=== PATIENT | female | born 1950 | race Caucasian/White ===

== ENCOUNTER 2016-04-16 19:13 | Emergency (ER) | payer MEDICARE, OTHER | END 2016-04-16 19:48 | disposition left against medical advice (07) | LOC: ER 19:19 | DX: Z53.21 Procedure and treatment not carried out due to patient leaving prior to being seen by health care provider (principal) ==

== ENCOUNTER 2016-04-16 21:07 | Emergency (ER) | payer MEDICARE, OTHER ==
[~2016-04-16] VITALS: Ht 165.1 cm; Wt 73.9 kg
[2016-04-16 21:20] VITALS: BP 119/69
== END 2016-04-16 22:47 | disposition left against medical advice (07) ==
LOC: ER 21:07
DX: Z53.21 Procedure and treatment not carried out due to patient leaving prior to being seen by health care provider (principal)
CPT/HCPCS: A4606; Z7610

== ENCOUNTER 2016-08-07 10:44 | Outpatient (CLI) | payer MEDICARE, OTHER ==
[2016-08-07 13:53] LABS: BASOPHILS % (AUTO) 0.3 % (0.0-2.0); EOSINOPHILS # (AUTO) 0.3 /CMM (0.0-0.7); EOSINOPHILS % (AUTO) 2.6 % (0.0-6.0); HEMATOCRIT 44 % (33-45); HEMOGLOBIN 14.7 g/dL (11.5-14.8); LYMPHOCYTES # (AUTO) 3.6 /CMM (0.8-4.8); LYMPHOCYTES % (AUTO) 31.3 % (20.0-44.0); MEAN CORPUSCULAR HEMOGLOBIN 31 PG (26.0-33.0); MEAN CORPUSCULAR HGB CONC 34 g/dl (31.0-36.0); MEAN CORPUSCULAR VOLUME 93 fL (82-100); MONOCYTES # (AUTO) 0.8 /CMM (0.1-1.30); MONOCYTES % (AUTO) 7.2 % (2.0-12.0); NEUTROPHILS # (AUTO) 6.8 /CMM (1.8-8.9); NEUTROPHILS % (AUTO) 58.6 % (43.0-81.0); PLATELET COUNT (AUTO) 163 /CMM (150-450); RDW COEFFICIENT OF VARIATION 13.8 (11.5-15.0); RED BLOOD CELL COUNT(AUTO) 4.72 MIL/uL (4.0-5.2); WHITE BLOOD COUNT (AUTO) 11.6 K/uL (4.3-11.0)
[2016-08-07 14:31] LABS: ALBUMIN 3.7 g/dL (3.4-5.0); BILIRUBIN,TOTAL 0.4 mg/dL (0.2-1.0); CALCIUM, SERUM 9.8 mg/dL (8.5-10.1); CREATININE 0.7 mg/dL (0.6-1.3); POTASSIUM 4.6 mmol/L (3.5-5.1); TOTAL PROTEIN, SERUM 7.4 g/dL (6.4-8.2)
[2016-08-08 11:11] LABS: AFP, TUMOR MARKER 3.3 ng/mL (0.0-8.3)
== END 2016-08-07 23:59 | disposition home or self-care (01) ==
LOC: US 10:44
PROVIDERS: ATTEND Internal Medicine Hematology & Oncology
DX: K74.60 Unspecified cirrhosis of liver (principal); N64.4 Mastodynia; N64.89 Other specified disorders of breast; L90.5 Scar conditions and fibrosis of skin; R63.4 Abnormal weight loss; R16.0 Hepatomegaly, not elsewhere classified; K76.9 Liver disease, unspecified
CPT/HCPCS: 36415; 76641-TC; 76700-TC; 80053-TC; 82105; 85025-TC; 86704; 86709; 86803

== ENCOUNTER 2018-12-30 11:38 | Inpatient (IN) | payer MEDICARE, OTHER ==
[~2018-12-30] VITALS: Ht 160 cm; Wt 70.8 kg
[2018-12-30 00:01] VITALS: BP 125/87
[2018-12-30 12:17] LABS: BASOPHILS # (AUTO) 0.1 /CMM (0.0-0.2); BASOPHILS % (AUTO) 0.8 % (0.0-2.0); EOSINOPHILS % (AUTO) 2.3 % (0.0-6.0); HEMATOCRIT 45 % (33-45); HEMOGLOBIN 14.6 g/dL (11.5-14.8); LYMPHOCYTES # (AUTO) 1.7 /CMM (0.8-4.8); LYMPHOCYTES % (AUTO) 20.9 % (20.0-44.0); MEAN CORPUSCULAR HGB CONC 33 g/dl (31.0-36.0); MEAN CORPUSCULAR VOLUME 93 fL (82-100); MONOCYTES # (AUTO) 0.7 /CMM (0.1-1.30); MONOCYTES % (AUTO) 8.9 % (2.0-12.0); NEUTROPHILS # (AUTO) 5.5 /CMM (1.8-8.9); NEUTROPHILS % (AUTO) 67.1 % (43.0-81.0); PLATELET COUNT (AUTO) 115 /CMM (150-450); RED BLOOD CELL COUNT(AUTO) 4.79 MIL/uL (4.0-5.2); WHITE BLOOD COUNT (AUTO) 8.2 K/uL (4.3-11.0)
[2018-12-30 12:24] LABS: CARBON DIOXIDE 30 mmol/L (21-32); CHLORIDE 105 mmol/L (98-107); CREATININE 0.7 mg/dL (0.6-1.3); GLUCOSE 85 mg/dL (74-106); POTASSIUM 4.4 mmol/L (3.5-5.1); SODIUM SERUM 139 mmol/L (136-145); UREA NITROGEN, BLOOD 16 mg/dL (7-18)
[2018-12-30 12:36] LABS: ALANINE AMINOTRANSFERASE 19 U/L (12-78); ALBUMIN 3.7 g/dL (3.4-5.0); ALKALINE PHOSPHATASE 66 U/L (46-116); ASPARTATE AMINOTRANSFERASE 19 U/L (15-37); B-TYPE NATRIURETIC PEPTIDE 2268 PG/ML (0-125); BILIRUBIN,DIRECT 0.1 mg/dL (0.0-0.2); BILIRUBIN,TOTAL 0.4 mg/dL (0.2-1.0); TOTAL PROTEIN, SERUM 7.1 g/dL (6.4-8.2)
--- NOTE | 2018-12-30 13:21 | NUR ---
CALLED [facility]. DRILL SERGEANT WAS PAGED
[2018-12-30] MEDS ORDERED: CYCL5TAB PO (13:27)
[2018-12-30] MEDS ORDERED: OMEP40CA37 PO (13:27)
[2018-12-30] MEDS ORDERED: MEMA10TA PO (13:27)
[2018-12-30] MEDS ORDERED: DULO20CA PO (13:27)
[2018-12-30] MEDS ORDERED: QUET300T2 PO (13:27)
[2018-12-30] MEDS ORDERED: OLAN10TA3 PO (13:27)
[2018-12-30] MEDS ORDERED: ACET-907 PO (13:27)
[2018-12-30] MEDS ORDERED: PRAV40TA3 PO (13:27)
[2018-12-30] MEDS ORDERED: MELO-105 PO (13:27)
[2018-12-30] MEDS ORDERED: LOSA50TA39 PO (13:27)
[2018-12-30] MEDS ORDERED: ALBU18HF2 IH (13:27)
[2018-12-30] MEDS ORDERED: BENA20TA9 PO (13:27)
[2018-12-30] MEDS ORDERED: ATOR40TA PO (13:27)
[2018-12-30] MEDS ORDERED: ESCI10TA PO (13:27)
[2018-12-30] MEDS ORDERED: OXCA300T15 PO (13:27)
[2018-12-30] MEDS ORDERED: LORA10TA7 PO (13:27)
[2018-12-30] MEDS ORDERED: FUROSEMIDE 20 MG/2 ML VIAL IV ONE (13:30)
[2018-12-30] MEDS ORDERED: FUROSEMIDE 20 MG/2 ML VIAL ONE (13:41)
[2018-12-30] MEDS ORDERED: ONDANSETRON HCL/PF 4 MG/2 ML VIAL IVP PRN (14:00)
[2018-12-30] MEDS ORDERED: MAGNESIUM HYDROXIDE 30 ML UDC PO PRN (14:00)
[2018-12-30] MEDS ORDERED: ACETAMINOPHEN 325 MG TABLET PO PRN (14:00)
[2018-12-30] MEDS ORDERED: MAG HYDROX/AL HYDROX/SIMETH 30 ML UDC PO PRN (14:00)
[2018-12-30] MEDS ORDERED: ZOLPIDEM TARTRATE 5 MG TABLET PO PRN (14:00)
[2018-12-30] MEDS ORDERED: ALBUTEROL FS 2.5 MG/3 ML VIAL.NEB NEB PRN (14:00)
[2018-12-30] MEDS ORDERED: MORPHINE SULFATE INJ 2 MG/ML DISP.SYRIN IV PRN (14:00)
[2018-12-30] MEDS: ENOXAPARIN SODIUM 40 MG/0.4 ML DISP.SYRIN SQ SCH ×2 (14:00→14:58)
--- NOTE | 2018-12-30 14:06 | NUR ---
REPORT GIVEN TO ELIN FUENTES FOR MATTHEW PT WILL BE TRANSPORTED TO 3RD FLOOR VIA [facility]
[2018-12-30 14:30] VITALS: BP 157/89
[2018-12-30] MEDS: OXCARBAZEPINE 150 MG TABLET PO SCH (14:39)
[2018-12-30] MEDS: QUETIAPINE FUMARATE 100 MG TABLET PO SCH (14:39)
[2018-12-30] MEDS ORDERED: CLONIDINE HCL 0.1 MG TABLET PO ONE (14:50)
[2018-12-30] MEDS ORDERED: CLONIDINE HCL 0.1 MG TABLET PO PRN (15:00)
--- NOTE | 2018-12-30 15:00 | NUR ---
BUILDING MAINTENANCE TECHNICIANFARM SPECIALIST NOTES RECEIVED PT FROM ER DEPT VIA STRETCHER. PT ABLE TO AMBULATE WITH STEADY GAIT FROM STRETCHER GOING INSIDE THE ROOM AND GOING TO THE BATHROOM AND TO THE BED. ALL BELONGINGS REVIEWED WITH PT AND CHECKED IN THE INVENTORY LIST. PT A/O X3-4. PT TOLERATING RA, WITH COMPLAINS OF HAVING SOB, OXYGEN SATURATION CHECKED AND RESULTED 100%, PT AWARE. PT HOOKED IN TELEMONITORING, SR 95. PT DENIES ANY PAIN OR ANY DISCOMFORT AT THE TIME OF ADMISSION. PT ALSO DENIES QUESTIONS AND CONCERNS AT THIS MOMENT AND WANTS TO HAVE REST FOR NOW. PT ABLE TO PROVIDE MOST OF THE ADMISSION INFORMATION/HISTORY. [facility] [facility] [place]. SKIN ASSESSED, WITH NO SKIN BREAKDOWN. PIV TO RAC G20, FLUSHED WITH NS, INTACT AND OPERATIONAL. PT KEPT COMFORTABLE IN BED. BED IN LOWEST LOCKED POSITION WITH SR X3. CALL LIGHT KEPT WITHIN REACH. WILL CONTINUE PLAN OF CARE.
--- NOTE | 2018-12-30 15:15 | NUR ---
MUSIC THEORY PROFESSOR NOTES CLARIFICATION TO THE SKIN ASSESSMENT THAT IS INTACT. "INTACT" PER PT BUT HAS A HEALED WOUND ON THE RIGHT HAND WITH A GLOVE ON. PT REFUSED TO HAVE THE GLOVE TAKEN OFF AND PICTURE TO BE TAKEN. RN EXPLAINED RISKS AND BENEFITS, INSISTED TO REFUSE.
[2018-12-30 16:00] VITALS: BP 90/56
--- NOTE | 2018-12-30 16:10 | NUR ---
TEACHER EMOTIONALLY IMPAIRED NOTES PT REFUSED TO HAVE VENOUS DOPPLER TO BILATERAL LEGS AT THIS TIME. PT PEREFERS IT TO BE DONE AT 5PM. RISKS AND BENEFITS EXPLAINED. PT INSISTED TO REFUSE.
--- NOTE | 2018-12-30 16:21 | NUR ---
PT REFUSED DUPLEX VENOUS LOWER EXT BI EXAM. ADVISED ATTENDING RN. TRY LATER.
[2018-12-30] MEDS: LOSARTAN POTASSIUM 50 MG TABLET PO SCH (17:00)
[2018-12-30] MEDS: MEMANTINE HCL 5 MG TABLET PO SCH (17:28)
[2018-12-30] MEDS: HYDROCODONE/APAP 5/325MG 1 EACH TABLET PO PRN (17:32)
--- NOTE | 2018-12-30 18:45 | NUR ---
BANK REPRESENTATIVE CLOSING NOTES PT A/O X 3-4. AMBULATORY. PT TOLERATING RA, WITH NO ACUTE RESPIRATORY DISTRESS NOTED. PT ON TELEMONITORING, SR 96. PT DENIES ANY PAIN OR ANY DISCOMFORT AT THIS MOMENT. PIV TO RAC G20, FLUSHED WITH NS, INTACT AND OPERATIONAL. ALL NEEDS AND CARE ATTENDED. PT KEPT COMFORTABLE IN BED. BED IN LOWEST LOCKED POSITION WITH SR X3. CALL LIGHT KEPT WITHIN REACH. WILL ENDORSE TO INCOMING NIGHT NURSE FOR MATTHEW.
--- NOTE | 2018-12-30 19:10 | NUR ---
FISHER LAMPARA NET NOTE RECEIVED PT IN STABLE CONDITION A/O X4, CURRENTLY SLEEPING, EASILY RESPONDS TO NAME. NO SIGNS OF SOB OR DISTRESS, NO C/O PAIN. IV IN R AC #[address] S/L. ALL CURRENT NEEDS ATTENDED TO. BED LOW, LOCKED, UPPER RAILS UP AND CALL LIGHT WITHIN REACH. WILL CONT. TO MONITOR.
[2018-12-30 20:00] VITALS: BP 107/63
[2018-12-31] VITALS (19 sets, daily range): BP systolic 83–144; BP diastolic 45–95
[2018-12-31] MEDS: HYDROCODONE/APAP 5/325MG 1 EACH TABLET PO PRN ×2 (02:15→08:44)
--- NOTE | 2018-12-31 06:32 | NUR ---
HUMID SYSTEM OPERATOR NOTE PT IN STABLE CONDITION A/O X4, CURRENTLY SLEEPING, EASILY RESPONDS TO NAME. NO SIGNS OF SOB OR DISTRESS, NO C/O PAIN. IV IN R AC #[address] S/L. TELE MONITOR: SR 70. ALL CURRENT NEEDS ATTENDED TO. BED LOW, LOCKED, UPPER RAILS UP AND CALL LIGHT WITHIN REACH. WILL CONT. TO MONITOR AND ENDORSE TO NEXT SHIFT FOR MATTHEW.
[2018-12-31 06:41] LABS: BASOPHILS % (AUTO) 0.5 % (0.0-2.0); EOSINOPHILS % (AUTO) 2.9 % (0.0-6.0); HEMATOCRIT 44 % (33-45); HEMOGLOBIN 14.6 g/dL (11.5-14.8); LYMPHOCYTES # (AUTO) 2.6 /CMM (0.8-4.8); LYMPHOCYTES % (AUTO) 29.3 % (20.0-44.0); MEAN CORPUSCULAR HGB CONC 34 g/dl (31.0-36.0); MEAN CORPUSCULAR VOLUME 92 fL (82-100); MONOCYTES # (AUTO) 0.9 /CMM (0.1-1.30); MONOCYTES % (AUTO) 9.9 % (2.0-12.0); NEUTROPHILS # (AUTO) 5.1 /CMM (1.8-8.9); NEUTROPHILS % (AUTO) 57.4 % (43.0-81.0); PLATELET COUNT (AUTO) 106 /CMM (150-450); RED BLOOD CELL COUNT(AUTO) 4.73 MIL/uL (4.0-5.2); WHITE BLOOD COUNT (AUTO) 8.9 K/uL (4.3-11.0)
[2018-12-31 06:56] LABS: ALBUMIN 3.5 g/dL (3.4-5.0); BILIRUBIN,TOTAL 0.5 mg/dL (0.2-1.0); CALCIUM, SERUM 9.7 mg/dL (8.5-10.1); CREATININE 0.8 mg/dL (0.6-1.3); MAGNESIUM 1.9 mg/dL (1.8-2.4); PHOSPHORUS 3.6 mg/dL (2.5-4.9); POTASSIUM 4.6 mmol/L (3.5-5.1)
[2018-12-31 07:11] LABS: THYROID STIMULATING HORMONE 0.992 uIU/mL (0.358-3.74)
[2018-12-31] MEDS: PANTOPRAZOLE 40 MG TABLET.DR PO SCH (07:30)
--- NOTE | 2018-12-31 07:45 | NUR ---
LOFT WORKER HEAD OPENING NOTES Patient received on room air, no sob noted, a/o x4. On tele SR 80's, R AC 20 S/L. Patient denies pain at this time and is sleeping comfortably on her bed. Bed at the lowest setting, call light within reach, side rails up x2.
[2018-12-31] MEDS: MEMANTINE HCL 5 MG TABLET PO SCH ×2 (08:42→16:25)
[2018-12-31] MEDS: DULOXETINE HCL 20 MG CAPSULE.DR PO SCH (08:43)
[2018-12-31] MEDS: ATORVASTATIN 40 MG TABLET PO SCH (08:43)
[2018-12-31] MEDS: OXCARBAZEPINE 150 MG TABLET PO SCH (08:43)
[2018-12-31] MEDS: QUETIAPINE FUMARATE 100 MG TABLET PO SCH (08:43)
[2018-12-31] MEDS: ESCITALOPRAM OXALATE (10 MG) 10 MG TABLET PO SCH (08:44)
[2018-12-31] MEDS: FUROSEMIDE 20 MG TABLET PO SCH (08:44)
[2018-12-31] MEDS: OLANZAPINE 10 MG TABLET PO SCH (08:44)
[2018-12-31] MEDS: LOSARTAN POTASSIUM 50 MG TABLET PO SCH ×2 (08:44→16:17)
[2018-12-31] MEDS: BENAZEPRIL HCL 20 MG TABLET PO SCH (08:44)
--- NOTE | 2018-12-31 08:51 | NUR ---
RN NOTES Patient asked for NORCO and then refused after I opened the medication to be administered. Medication to be wasted.
[2018-12-31] MEDS ORDERED: ALBUTEROL FS 2.5 MG/3 ML VIAL.NEB NEB PRN (09:00)
[2018-12-31] MEDS: ALBUTEROL FS 2.5 MG/3 ML VIAL.NEB NEB SCH ×3 (10:00→19:38)
[2018-12-31] MEDS: IPRATROPIUM NEB FS 0.5 MG/2.5 ML AMPUL.NEB NEB SCH ×3 (10:00→19:38)
[2018-12-31] MEDS ORDERED: IOHEXOL-350 100 ML VIAL IV ONE (11:38)
[2018-12-31] MEDS ORDERED: IV NS 0.9% 250 ML IV ONE (11:38)
[2018-12-31] MEDS ORDERED: CT SWABBABLE VALVE TRANS SET 1 EA INFUS.SET MC ONE (11:39)
--- NOTE | 2018-12-31 12:07 | NUR ---
RT NOTE ABG ORDERED,BUT PT REFUSED EXPLAINED RISK AND BENEFITS, BUT PT STILL REFUSED, RN AT BEDSIDE AND MADE AWARE
[2018-12-31] MEDS ORDERED: IV NS 0.9% 1,000 ML IV PRN (13:00)
[2018-12-31] MEDS ORDERED: IV NS 0.9% 1,000 ML BAG IV PRN (13:00)
[2018-12-31] MEDS ORDERED: IV D5/ 0.9% NACL 1,000 ML IV ONE (13:00)
--- NOTE | 2018-12-31 13:11 | NUR ---
RT TRANSFER TO ICU NOTES Patient transfered to ICU at this time. Report given bedside. Lovenox order placed, along with IV bolus and D5 NS @ 125 ml per hour.
[2018-12-31] MEDS: ENOXAPARIN SODIUM 80 MG/0.8 ML DISP.SYRIN SQ SCH ×2 (13:22→21:11)
[2018-12-31] MEDS ORDERED: NOREPINEPHRINE 16 MG in IV D5W 500 ML IV PRN (14:00)
--- NOTE | 2018-12-31 14:02 | NUR ---
RN NOTE 1310: Received patient transfer form 3W for PE seen from CTA chest. Per report from previous nurse, she had episode of SBP 80's, 500 NS bolus ongoing. Still 80;s at this time. Obtained order to may have PICC line insertion and Levophed standby. Patient agreed and signed consent for PICC insertion. 1330: Started patient on Lovenox 70mg, patient is aware for the plan of care. On 2LPM of O2 via NC, 99% sat. No respiratory distress noted at this time. 1400: EDUARDO PICC insertion done, patient tolerated well. VSS. Tomas PULP GRINDER updated. Done with 500NS bolus. SBP 100's. Will continue D5NS @ 125 x1. Patient resting well at this time.
--- NOTE | 2018-12-31 18:32 | NUR ---
RN NOTE Patient resting in bed well. VSS, on 2 LPM of O2 via NC. No c/o respiratory distress noted at this time. No c/o discomfort.
[2018-12-31] MEDS ORDERED: ALBUT2 NEB (19:41)
[2018-12-31] MEDS ORDERED: FURO20TA4 PO (19:41)
[2018-12-31] MEDS ORDERED: ENOX80DI SQ (19:41)
[2018-12-31] MEDS ORDERED: CLON0.1T14 PO (19:41)
[2018-12-31] MEDS ORDERED: IPRA0.2S9 NEB (19:41)
--- NOTE | 2018-12-31 20:32 | NUR ---
SOLID WASTE MANAGEMENT ENGINEER INITIAL NOTE RECEIVED PT IN BED, AOX3, ON NC@2L, WELL TOLERATED SR ON THE MONITOR, DENIES ANY DISCOMFORT POSITIVE FOR MASSIVE PE ON CTA EDUARDO PICC, FOR TRANSFER TO [facility], AWAITING FOR FINANCIAL CLEARANCE, PAPERWORK READY, PT AWARE, CLOSE MONITORING IN PLACE.
[2019-01-01] VITALS (26 sets, daily range): BP systolic 91–175; BP diastolic 36–107
[2019-01-01] MEDS: ALBUTEROL FS 2.5 MG/3 ML VIAL.NEB NEB SCH ×4 (01:34→19:11)
[2019-01-01] MEDS: IPRATROPIUM NEB FS 0.5 MG/2.5 ML AMPUL.NEB NEB SCH ×4 (01:34→19:11)
[2019-01-01] MEDS: HYDROCODONE/APAP 5/325MG 1 EACH TABLET PO PRN ×2 (01:34→17:57)
[2019-01-01 04:07] LABS: BASOPHILS % (AUTO) 0.5 % (0.0-2.0); EOSINOPHILS % (AUTO) 2.6 % (0.0-6.0); HEMATOCRIT 41 % (33-45); HEMOGLOBIN 13.5 g/dL (11.5-14.8); LYMPHOCYTES # (AUTO) 2.2 /CMM (0.8-4.8); LYMPHOCYTES % (AUTO) 29.6 % (20.0-44.0); MEAN CORPUSCULAR HGB CONC 33 g/dl (31.0-36.0); MEAN CORPUSCULAR VOLUME 93 fL (82-100); MONOCYTES # (AUTO) 0.8 /CMM (0.1-1.30); MONOCYTES % (AUTO) 10.9 % (2.0-12.0); NEUTROPHILS # (AUTO) 4.2 /CMM (1.8-8.9); NEUTROPHILS % (AUTO) 56.4 % (43.0-81.0); PLATELET COUNT (AUTO) 106 /CMM (150-450); RED BLOOD CELL COUNT(AUTO) 4.38 MIL/uL (4.0-5.2); WHITE BLOOD COUNT (AUTO) 7.4 K/uL (4.3-11.0)
[2019-01-01 04:17] LABS: CALCIUM, SERUM 9.2 mg/dL (8.5-10.1); CREATININE 0.8 mg/dL (0.6-1.3); POTASSIUM 3.8 mmol/L (3.5-5.1)
--- NOTE | 2019-01-01 06:24 | NUR ---
RADIAL SAW OPERATOR CLOSING NOTE PT IN BED, AOX3, ON NC@2L, WELL TOLERATED SR ON THE MONITOR, DENIES ANY DISCOMFORT POSITIVE FOR MASSIVE PE ON CTA EDUARDO PICC, FOR TRANSFER TO [facility], AWAITING FOR FINANCIAL CLEARANCE, AND BED, PAPERWORK READY, PT AWARE, CLOSE MONITORING IN PLACE, WILL ENDORSE TO AM RN TO TO F/U WITH CM.
[2019-01-01] MEDS: QUETIAPINE FUMARATE 100 MG TABLET PO SCH (08:30)
[2019-01-01] MEDS: ENOXAPARIN SODIUM 80 MG/0.8 ML DISP.SYRIN SQ SCH ×2 (08:30→20:30)
[2019-01-01] MEDS: PANTOPRAZOLE 40 MG TABLET.DR PO SCH (08:31)
[2019-01-01] MEDS: DULOXETINE HCL 20 MG CAPSULE.DR PO SCH (08:31)
[2019-01-01] MEDS: FUROSEMIDE 20 MG TABLET PO SCH (08:31)
[2019-01-01] MEDS: LOSARTAN POTASSIUM 50 MG TABLET PO SCH ×2 (08:31→16:23)
[2019-01-01] MEDS: ATORVASTATIN 40 MG TABLET PO SCH (08:31)
[2019-01-01] MEDS: MEMANTINE HCL 5 MG TABLET PO SCH ×2 (08:31→16:23)
[2019-01-01] MEDS: ESCITALOPRAM OXALATE (10 MG) 10 MG TABLET PO SCH (08:31)
[2019-01-01] MEDS: BENAZEPRIL HCL 20 MG TABLET PO SCH (08:32)
[2019-01-01] MEDS: OXCARBAZEPINE 150 MG TABLET PO SCH (08:35)
[2019-01-01] MEDS: OLANZAPINE 10 MG TABLET PO SCH (08:35)
--- NOTE | 2019-01-01 09:25 | NUR ---
RN NOTE 0715: Received patient awake, A/Ox4. Tolerated room air at this time. With EDUARDO PICC intact. VSS. No SOB or any respiratory distress noted at this time. Patient aware for the plan of care, awaiting for bed availability from [facility]. 0910: S/E by Dr. Wells, still awaiting for placement/bed availability.
--- NOTE | 2019-01-01 17:13 | NUR ---
RN NOTE No any significant changes noted at this time. VSS. Still awaiting for placement, per CM [facility] will us when there is available bed.
--- NOTE | 2019-01-01 19:32 | NUR ---
ACID CHANGER. INITIAL ASSESSMENT. RECEIVED THE PT REST ON THE BED. AWAKE, ALERT, FOLLOW COMMANDS. WILDLIFE CONTROL OPERATOR SHOWING NSR. OXYGEN 2L VIA NASAL CANNULA. SAT 96%. NO ACUTE DISTRESS NOTED. IV RT UPPER ARM MID LINE. SALINE LOCK. WILL CONTINUE TO MONITOR VITALS.
[2019-01-02] VITALS (18 sets, daily range): BP systolic 86–160; BP diastolic 45–85
[2019-01-02] MEDS: IPRATROPIUM NEB FS 0.5 MG/2.5 ML AMPUL.NEB NEB SCH ×3 (00:49→13:30)
[2019-01-02] MEDS: ALBUTEROL FS 2.5 MG/3 ML VIAL.NEB NEB SCH ×3 (00:49→13:30)
--- NOTE | 2019-01-02 03:06 | NUR ---
[employer] school agriculture teacher. am care. oral care, bed bath given. linen changed. remaining same oxygen tolerated well. vitals stable, afebrile. sat 98%. no acute distress noted. during shift pt denies sob or chest pain. will continue to monitor vitals.
[2019-01-02] MEDS: HYDROCODONE/APAP 5/325MG 1 EACH TABLET PO PRN ×2 (05:18→11:14)
--- NOTE | 2019-01-02 07:55 | NUR ---
RN NOTE 0715: Received patient resting. A/Ox4. No respiratory distress noted at this time. Tolerated room air. SR on the monitor. No active bleeding noted. EDUARDO PICC intact. 0755: No any significant changes noted. Will continue to monitor. Awaiting for placement([facility] call back).
[2019-01-02] MEDS: ATORVASTATIN 40 MG TABLET PO SCH (08:09)
[2019-01-02] MEDS: PANTOPRAZOLE 40 MG TABLET.DR PO SCH (08:09)
[2019-01-02] MEDS: DULOXETINE HCL 20 MG CAPSULE.DR PO SCH (08:09)
[2019-01-02] MEDS: ESCITALOPRAM OXALATE (10 MG) 10 MG TABLET PO SCH (08:09)
[2019-01-02] MEDS: QUETIAPINE FUMARATE 100 MG TABLET PO SCH (08:09)
[2019-01-02] MEDS: MEMANTINE HCL 5 MG TABLET PO SCH ×2 (08:09→16:44)
[2019-01-02] MEDS: BENAZEPRIL HCL 20 MG TABLET PO SCH (08:09)
[2019-01-02] MEDS: FUROSEMIDE 20 MG TABLET PO SCH (08:09)
[2019-01-02] MEDS: LOSARTAN POTASSIUM 50 MG TABLET PO SCH ×2 (08:09→16:40)
[2019-01-02] MEDS: ENOXAPARIN SODIUM 80 MG/0.8 ML DISP.SYRIN SQ SCH (08:10)
[2019-01-02] MEDS: OLANZAPINE 10 MG TABLET PO SCH (08:11)
[2019-01-02] MEDS: OXCARBAZEPINE 150 MG TABLET PO SCH (09:09)
--- NOTE | 2019-01-02 16:07 | NUR ---
RN CHANCE Arvizu from [facility] called [phone]), report given. Going to room 7W-9008. Per Keshia YING, molded goods spot picker time at 1730. Made patient aware.
--- NOTE | 2019-01-02 17:11 | NUR ---
RN NOTE Family at bedside, aware for the POC. Patient A/Ox4, aware for the POC. Changed dressing of the EDUARDO PICC 2/ noted with scant amount of blood from the site. Checked belongings, given the wallet and necklaces from safe. Patient signed the list. [facility]. VSS at this time. No significant changes.
[2019-01-04 12:08] LABS: *CARD ANTI-CARDIOLIPIN AB IgA <9 APL U/mL (0-11); *CARD ANTI-CARDIOLIPIN AB IgG <9 GPL U/mL (0-14); *CARD ANTI-CARDIOLIPIN AB IgM 10 MPL U/mL (0-12)
[2019-01-05 12:11] LABS: *ANTITHROMBIN III AG 80 % (72-124); PROTEIN C ACTIVITY 106 % (73-180)
== END 2019-01-02 17:10 | disposition short-term general hospital (02) | DRG 176 ==
LOC: ER 11:38 → TELE 13:51 → MED 12-31 10:26 → ICU 12-31 13:07
PROVIDERS: ADMIT Nurse Practitioner Acute Care; ATTEND Nurse Practitioner Acute Care
PROC: 02HV33Z Insertion of Infusion Device into Superior Vena Cava, Percutaneous Approach (ICD-10-PCS; principal; 2018-12-31)
PROC: B548ZZA Ultrasonography of Superior Vena Cava, Guidance (ICD-10-PCS; 2018-12-31)
DX: I26.99 Other pulmonary embolism without acute cor pulmonale (principal); I50.32 Chronic diastolic (congestive) heart failure; I27.21 Secondary pulmonary arterial hypertension; D69.6 Thrombocytopenia, unspecified; E78.5 Hyperlipidemia, unspecified; G62.9 Polyneuropathy, unspecified; I10 Essential (primary) hypertension; F17.210 Nicotine dependence, cigarettes, uncomplicated; J45.909 Unspecified asthma, uncomplicated; M12.9 Arthropathy, unspecified; F43.10 Post-traumatic stress disorder, unspecified; F41.9 Anxiety disorder, unspecified; F31.9 Bipolar disorder, unspecified; I11.0 Hypertensive heart disease with heart failure
CPT/HCPCS: 36415; 71045-TC; 71250-TC; 80048-TC; 80053-TC; 80061-TC; 80076-TC; 83735-TC; 83880; 84100-TC; 84443-TC; 84484-TC; 85025-TC; 85300; 85301; 85303; 86147; 87081-TC; 93307-TC; 93970-TC; 94760-TC; 94799-TC; G0378; J1650; J1940; J7040; J7042; J7050; J7060; Q9967